=== PATIENT | female | born 1965 | race Caucasian/White ===

== ENCOUNTER 2019-05-10 13:25 | Outpatient (CLI) | payer OTHER | END 2019-05-10 23:59 | disposition home or self-care (01) | LOC: CFH 13:25 | PROVIDERS: ATTEND Otolaryngology | DX: H90.3 Sensorineural hearing loss, bilateral (principal) | CPT/HCPCS: 70480 ==

== ENCOUNTER 2019-05-16 09:53 | Emergency (ER) | payer OTHER ==
[~2019-05-16] VITALS: Ht 165.1 cm; Wt 65.7 kg
[2019-05-16 09:54] VITALS: BP 139/77
== END 2019-05-16 10:51 | disposition home or self-care (01) ==
LOC: ED 10:40
DX: T16.2XXA Foreign body in left ear, initial encounter (principal); X58.XXXA Exposure to other specified factors, initial encounter; Y93.89 Activity, other specified; Y92.89 Other specified places as the place of occurrence of the external cause; Y99.8 Other external cause status
CPT/HCPCS: 99283

== ENCOUNTER 2019-08-09 19:18 | Emergency (ER) | payer OTHER ==
[~2019-08-09] VITALS: Ht 165.1 cm; Wt 67.7 kg
[2019-08-09 19:27] VITALS: BP 156/99
--- NOTE | 2019-08-09 19:57 | NUR ---
ice in place cms remains intact xray result pending
--- NOTE | 2019-08-09 20:10 | NUR ---
xray at bedside walker provided to patient as reports hx of difficulty using crutches
== END 2019-08-09 22:12 | disposition home or self-care (01) ==
LOC: ED 21:45
DX: S93.401A Sprain of unspecified ligament of right ankle, initial encounter (principal); X50.1XXA Overexertion from prolonged static or awkward postures, initial encounter; Y93.02 Activity, running; Y92.410 Unspecified street and highway as the place of occurrence of the external cause; Y99.8 Other external cause status
CPT/HCPCS: 29515; 99283